=== PATIENT | male | born 1955 | race Caucasian/White ===

== ENCOUNTER 2018-04-03 12:55 | Inpatient (IN) | payer BC ==
[~2018-04-03] VITALS: Ht 182.9 cm; Wt 81.4 kg
[~2018-04-03 12:55] MED LIST: CRESTOR10 MG; JANUMET 50/11 TABLET PO; LANTUS 3 M100 UNITS1; LOSARTAN-HCTZ1 EAC1
[2018-04-03] MEDS ORDERED: TOUJEO SOL300 UNIT/1 SC (13:23)
[2018-04-03] MEDS ORDERED: JARDIANCE25 MG PO (13:24)
[2018-04-03] MEDS ORDERED: COSOPT EYE DROP10 ML BOTH EYES (13:25)
[2018-04-03] MEDS ORDERED: ALPHAGAN P100 DROP/5 BOTH EYES (13:26)
[2018-04-03] MEDS ORDERED: TRULICITY0.75 MG/0. SC (13:27)
[2018-04-03 14:04] LABS: BASOPHIL (%) 0.2 % (0-1); EOSINOPHIL (%) 0.2 % (0-5); HEMATOCRIT 46.4 % (38.0-50.0); IMMATURE GRANULOCYTE (%) 0.6 % (0.0-0.7); LYMPHOCYTE (%) 9.2 % (15-42); LYMPHOCYTE COUNT 1.5 K/uL (1.0-2.8); MCH 29.9 PG (29.0-34.0); MCHC 34.5 G/DL (30.0-36.0); MCV 86.6 FL (86-99); MONOCYTE (%) 8.3 % (3-12); MONOCYTE COUNT 1.4 K/uL (0-0.8); NEUTROPHIL (%) 81.5 % (45-76); NEUTROPHIL COUNT 13.4 K/uL (1.8-6.4); PLATELET COUNT 215 K/uL (156-360); RBC DIS.WIDTH-CV 12.7 % (11.8-14.6); RBC DIS.WIDTH-SD 39.8 % (39-53); RED BLOOD COUNT 5.36 M/uL (4.00-5.50); WHITE BLOOD COUNT 16.4 K/uL (4.1-10.2)
[2018-04-03 14:17] LABS: CHLORIDE 102 mEq/L (99-109); POTASSIUM 4.5 mEq/L (3.7-5.4); SODIUM 136 mEq/L (136-147)
[2018-04-03 14:18] LABS: GLUCOSE 171 mg/dL (70-99)
[2018-04-03 14:22] LABS: CREATININE 0.9 mg/dL (0.6-1.3); GFR ESTIMATE (CALCULATED) > 59 mL/min/ (58.99-99999)
[2018-04-03 14:23] LABS: UREA NITROGEN (BUN) 10 mg/dL (9-23)
[2018-04-03] MEDS ORDERED: CYMBALTA30 MG PO (14:49)
[2018-04-03] MEDS ORDERED: LO-DOSE ASPIRIN81 M1 PO (14:50)
[2018-04-03 19:57] VITALS: BP 145/80
[2018-04-03 23:16] VITALS: BP 130/75
[2018-04-04 03:57] VITALS: BP 107/59
[2018-04-04 05:56] LABS: INTER. NORMALIZED RATIO 1.3
[2018-04-04 06:20] LABS: ALBUMIN 3.4 G/DL (3.2-4.8); ALKALINE PHOSPHATASE 56 IU/L (3-129); ALT (GPT) 8 IU/L (3-49); AST (GOT) 15 IU/L (2-34); CHLORIDE 101 MEQ/L (99-109); CREATININE 0.9 MG/DL (0.6-1.3); GFR ESTIMATE (CALCULATED) > 59 mL/min/ (58.99-99999); GLUCOSE 102 mg/dL (70-99); SODIUM 138 MEQ/L (136-147); TOTAL BILIRUBIN 1.6 MG/DL (0.0-1.0); TOTAL PROTEIN 6.2 G/DL (6.4-8.3); UREA NITROGEN (BUN) 14 mg/dL (9-23)
[2018-04-04 07:08] LABS: PTT 30.1 SEC (25-37)
[2018-04-04 08:18] VITALS: BP 145/86
[2018-04-05] VITALS (7 sets, daily range): BP systolic 135–180; BP diastolic 75–102
[2018-04-05 06:46] LABS: BASOPHIL (%) 0.4 % (0-1); EOSINOPHIL (%) 1.1 % (0-5); EOSINOPHIL COUNT 0.1 K/uL (0-0.3); HEMATOCRIT 45.9 % (38.0-50.0); HEMOGLOBIN 15.7 G/DL (12.5-16.6); IMMATURE GRANULOCYTE (%) 0.6 % (0.0-0.7); LYMPHOCYTE (%) 14.6 % (15-42); LYMPHOCYTE COUNT 1.7 K/uL (1.0-2.8); MCH 29.6 PG (29.0-34.0); MCHC 34.2 G/DL (30.0-36.0); MCV 86.4 FL (86-99); MONOCYTE COUNT 1.1 K/uL (0-0.8); NEUTROPHIL (%) 73.3 % (45-76); NEUTROPHIL COUNT 8.4 K/uL (1.8-6.4); PLATELET COUNT 226 K/uL (156-360); RBC DIS.WIDTH-CV 12.4 % (11.8-14.6); RBC DIS.WIDTH-SD 39.3 % (39-53); RED BLOOD COUNT 5.31 M/uL (4.00-5.50); WHITE BLOOD COUNT 11.4 K/uL (4.1-10.2)
[2018-04-05 07:03] LABS: CHLORIDE 102 MEQ/L (99-109); CREATININE 0.8 MG/DL (0.6-1.3); GFR ESTIMATE (CALCULATED) > 59 mL/min/ (58.99-99999); GLUCOSE 95 mg/dL (70-99); POTASSIUM 3.9 MEQ/L (3.7-5.4); SODIUM 138 MEQ/L (136-147); UREA NITROGEN (BUN) 15 mg/dL (9-23)
[2018-04-05 14:23] LABS: HEMOGLOBIN A1c (GLYCOHEMOGLOB) 7.3 % (Below 5.7)
[2018-04-06 04:00] VITALS: BP 148/86
[2018-04-06 08:16] VITALS: BP 158/91
[2018-04-06 15:42] VITALS: BP 165/98
[2018-04-06 23:59] VITALS: BP 165/88
[2018-04-07 07:30] VITALS: BP 140/80
[2018-04-07 16:26] VITALS: BP 171/97
[2018-04-08 00:41] VITALS: BP 153/89
[2018-04-08 07:00] LABS: CHLORIDE 103 MEQ/L (99-109); CREATININE 0.6 MG/DL (0.6-1.3); GFR ESTIMATE (CALCULATED) > 59 mL/min/ (58.99-99999); GLUCOSE 150 mg/dL (70-99); POTASSIUM 3.8 MEQ/L (3.7-5.4); SODIUM 139 MEQ/L (136-147); UREA NITROGEN (BUN) 10 mg/dL (9-23)
[2018-04-08] MEDS ORDERED: LEVAQUIN750 MG PO (08:33)
== END 2018-04-08 10:30 | disposition home or self-care (01) | DRG 475 ==
LOC: EME 12:55 → EDOF 16:45 → 2EAST 16:45 → ENRESERV 16:49 → 2EAST 19:46
PROVIDERS: Emergency Medicine; Family Medicine
PROC: 0Y6N0Z9 Detachment at Left Foot, Partial 1st Ray, Open Approach (ICD-10-PCS; principal; 2018-04-05)
DX: M86.172 Other acute osteomyelitis, left ankle and foot (principal); Z79.4 Long term (current) use of insulin; E11.69 Type 2 diabetes mellitus with other specified complication; E11.65 Type 2 diabetes mellitus with hyperglycemia; E11.42 Type 2 diabetes mellitus with diabetic polyneuropathy; E11.21 Type 2 diabetes mellitus with diabetic nephropathy; I10 Essential (primary) hypertension; D75.1 Secondary polycythemia; E78.5 Hyperlipidemia, unspecified; Z91.19 Patient's noncompliance with other medical treatment and regimen; E11.52 Type 2 diabetes mellitus with diabetic peripheral angiopathy with gangrene
CPT/HCPCS: 73630; 73720; 80048; 80053; 80202; 82565; 82948; 83036; 83605; 85025; 85610; 85730; 87040; 87070; 87075; 87077; 87186; 87205; 88305; 88311; 99281; 99285; A6260; J0692; J1815; J2250; J3010; J3370; S0020